=== PATIENT | female | born 1950 ===

== ENCOUNTER 2023-08-24 08:00 | Day surgery (SDC) | payer BC, MEDICARE ==
[~2023-08-24 08:00] MED LIST: Lidocaine 1% PF 2 ML SDV INJECT SCH
[2023-08-24] MEDS: Polymyxin B/Trimethoprim 10 ML Bottle EYERT SCH ×4 (08:10→10:28)
[2023-08-24] MEDS: Brimonidine 0.2% Ophth Soln 5 ML Bottle EYERT SCH ×4 (08:15→10:28)
[2023-08-24] MEDS: Phenylephrine 2.5% Ophth Soln 2 ML Bot EYERT SCH ×5 (08:20→10:08)
[2023-08-24] MEDS: Tropicamide 1% Ophth Soln 3 ML Bottle EYERT SCH ×4 (08:25→09:07)
[2023-08-24] MEDS: Tetracaine HCl/PF 0.5% 4 ML Bottle EYEBOTH SCH ×4 (09:53→10:15)
[2023-08-24] MEDS: Cefuroxime 10 MG/ML SYRINGE EYERT SCH ×2 (10:17→10:27)
[2023-08-24] MEDS: Pilocarpine 4% Ophth Soln 15 ML Bot EYERT SCH ×2 (10:18→10:28)
== END 2023-08-24 10:37 | disposition home or self-care (01) ==
LOC: JD.SDS 08:00
PROVIDERS: ATTEND Ophthalmology
DX: H25.811 Combined forms of age-related cataract, right eye (principal); J45.909 Unspecified asthma, uncomplicated; I10 Essential (primary) hypertension; M35.3 Polymyalgia rheumatica; G43.909 Migraine, unspecified, not intractable, without status migrainosus; F41.9 Anxiety disorder, unspecified; F32.A Depression, unspecified; Z79.899 Other long term (current) drug therapy; Z88.8 Allergy status to other drugs, medicaments and biological substances
CPT/HCPCS: 66984; A9270; J0697; 00142; 99100; J3490

== ENCOUNTER 2023-09-11 09:00 | Day surgery (SDC) | payer BC, MEDICARE ==
[~2023-09-11 09:00] MED LIST changes: +Cefuroxime 10 MG/ML SYRINGE EYELF SCH; +Pilocarpine 4% Ophth Soln 15 ML Bot EYELF SCH
[2023-09-11] MEDS: Polymyxin B/Trimethoprim 10 ML Bottle EYELF SCH ×3 (09:30→11:23)
[2023-09-11] MEDS: Brimonidine 0.2% Ophth Soln 5 ML Bottle EYELF SCH ×3 (09:35→11:23)
[2023-09-11] MEDS: Phenylephrine 2.5% Ophth Soln 2 ML Bot EYELF SCH ×5 (09:40→11:02)
[2023-09-11] MEDS: Tropicamide 1% Ophth Soln 3 ML Bottle EYELF SCH ×4 (09:45→10:28)
[2023-09-11] MEDS: Proparacaine 0.5% Ophth Soln 15 ML Bottle EYEBOTH SCH ×4 (10:40→11:14)
== END 2023-09-11 11:25 | disposition home or self-care (01) ==
LOC: JD.SDS 09:00
PROVIDERS: ATTEND Ophthalmology
DX: H25.812 Combined forms of age-related cataract, left eye (principal); I10 Essential (primary) hypertension; H33.321 Round hole, right eye; M35.3 Polymyalgia rheumatica; H16.103 Unspecified superficial keratitis, bilateral; H16.223 Keratoconjunctivitis sicca, not specified as Sjogren's, bilateral; Z88.7 Allergy status to serum and vaccine
CPT/HCPCS: A9270-GY; J0697; J3490